=== PATIENT | male | born 1940 | race Caucasian/White ===

== ENCOUNTER → 2018-03-17 | Outpatient (CLI) | payer OTHER, MEDICARE ==
[~2018-03-17] VITALS: Ht 182.9 cm; Wt 113.0 kg
[~2018-03-17] MED LIST: ASPIR 8181 MG PO; CHLORPROMAZINE25 M1 PO; CIPRO250 M1 PO; EPITOL200 MG PO; FLOMAX PO; FOLIC ACID1 MG PO; METHOTREXATE 22.5 M1 PO; NAPROSYN375 MG PO; NEURONTIN 300300 M1 PO; PERCOCET 5-3251 EACH PO; PRAVASTATIN SOD10 MG PO; PROTONIX40 MG PO; REGLAN 10 MG TA10 MG PO; RESTORIL15 MG PO; TEGRETOL XR100 MG PO; VITAMIN D3400 UNI2 PO; ZPAK PO
--- NOTE | ~2018-03-17 | EKG ---
[place] [address] [facility] [place] [address] ELECTROCARDIOGRAM REPORT Name: LONDONCATHLEEN BOLIVAR Room #: REG CLI Destini#: [id number] Admission: 03/17/18 Attend Phys: Dante Tate MD Discharge: Date of : 36 Report #: [id number] THIS REPORT FOR: //name// [facility] Test Date: 2018-03-17 Test Time: 07:18:23 Pat Name: CATHLEEN CALLAHAN Department: Room: Gender: M Senior Analysis Specialist: COLLETTE : 1940 Requested By: Becky Hooks Order Number: [id number] MD: Dwayne Hammond Measurements Intervals [place] Rate: 90 P: 0 CT: QRS: 126 QRSD: 144 T: -59 QT: 439 QTc: 538 Interpretive Statements Ventricular-paced complexes No further analysis attempted due to paced rhythm Compared to ECG 10/06/2014 20:08:51 Ventricular pacing is now present Electronically Signed On 03-17-2018 8:20:46 CDT by Dwayne Hammond [email or web address] <ELECTRONICALLY SIGNED> By: Dwayne Hammond MD, [facility] 03/17/18819 7 7 Dwayne Hammond MD, [facility] /EPI
--- NOTE | ~2018-03-17 | P ---
[facility] [place] [address] [place] [address] PROCEDURE REPORT Name: CATHLEEN CALLAHAN Room #: REG [facility].#: [id number] Admission: 03/17/18 Attend Phys: Dante Tate MD Discharge: Date of : 36 Report #: [id number] THIS REPORT FOR: //name// CC: Dante Tate BRIEF HISTORY: The patient is a 77-year-old male with a history of colon cancer for high-risk screening colonoscopy. PREOPERATIVE DIAGNOSIS: High-risk screening colonoscopy. POSTOPERATIVE DIAGNOSES: 1. Multiple small shallow ulcers, distal ileum, at the level of the anastomosis. 2. Moderate internal hemorrhoids. MEDICATIONS: Deep sedation with propofol per anesthesia. SPECIMEN: Biopsies of ulcerations at ileocolonic anastomosis. ESTIMATED BLOOD LOSS: 3 mL. PROCEDURE: Flexible sigmoidoscopy to distal ileum with biopsy. FINDINGS: Prior to propofol sedation, procedure of colonoscopy discussed with the patient as well as potential risks and its complications. He indicates he understands and desires to proceed. DESCRIPTION OF PROCEDURE: With the patient in left lateral decubitus position, digital examination was completed, which revealed no abnormalities. Subsequently, the Olympus video colonoscope was introduced in the rectum and advanced under direct vision. The scope was advanced to the level about 40-50 cm, at which point, the surgical anastomosis was identified. He has had a previous subtotal colectomy for colon cancer. The anastomosis was widely patent. The colonic stump was entered and noted to be unremarkable. The ileus stump was entered and noted to be unremarkable as well. At the level of the anastomosis, there were superficial ulcerations. The scope was advanced into the small bowel limb in the distal several centimeters, there were multiple small ulcers. Multiple biopsies were obtained. At that point, the scope was slowly withdrawn and careful circumferential views were obtained. Multiple small ulcers were seen, and biopsies were obtained. No strictures or masses were seen. The scope was further withdrawn and the colonic mucosa was unremarkable. No mucosal abnormalities were seen. No polyps were seen. The scope was withdrawn. The patient tolerated the procedure well. Upon retroflexion, hemorrhoids were seen. Scope was withdrawn. The patient [address] [address] PROCEDURE REPORT Name: CATHLEEN CALLAHAN [id number] Admission: 03/17/18 Attend Phys: Dante Tate MD Discharge: Date of : 36 Report #: [id number] tolerated the procedure well. CONDITION OF THE PATIENT UPON DISCHARGE: Following the procedure, the patient is drowsy, aroused and will be discharged home when fully ambulatory. INSTRUCTIONS TO THE PATIENT AND FAMILY AT THE TIME OF DISCHARGE: He has superficial ulcerations at the level of the ileocolonic anastomosis. This may be more mechanical rather than representing inflammatory disease. As noted, he does take methotrexate for his myasthenia gravis. We will follow up on biopsies obtained today. The patient did recently complain of explosive stools. He is certainly at risk for diarrhea with his subtotal colectomy. Copious amounts of bile were seen and bilious diarrhea is a potential factor. We will assess for the patient. Use of Imodium would be reasonable. Another option would be use of cholestyramine. At this point in time, consider followup colonoscopy in about 3 years. I would base that recommendation on the patient's overall health status, 3 years hence. He will return to care of Dr. Dante Caldera and return to see me as needed. <ELECTRONICALLY SIGNED> By: Dante Tate MD 03/23/18 [id number] Dante Tate MD /nt
--- NOTE | ~2018-03-17 | PATH ---
[facility] [address] [address] PATHOLOGY RPT PROCEDURE Name: AMRIT CALLAHAN Room #: REG CLI M.R.#: [id number] Admission: 03/17/18 Date of : 36 Discharge: Report #: [id number] Path Case #: [id number] [facility] Accession Number: [id number] . 01 Material submitted: . BX OF DISTAL ILEUM ULCERS . 01 Clinical history: . Pre-OP DX: Hx of colon cancer Post-OP DX: Ileo ulcers, hemorrhoids . 02 Diagnosis: Small bowel mucosa, distal ileum ulcers, endoscopic biopsy: - Marked active inflammation associated with surface ulceration. Please see comment. - Negative for dysplasia or malignancy. P/03/20/2018 . 02 Comment: Examination shows active cryptitis, surface ulceration, as well as a markedly expanded lamina propria. Viral inclusions, granulomata or parasitic organisms are not identified. Given the description, the differential diagnosis includes Crohn's disease, proximal involvement by ulcerative colitis, active infections-type of ileitis as well as medication induced changes. Increase in intraepithelial lymphocytes is not identified. There is no dysplasia or malignancy present. Please correlate clinically. (IUV:pit 03/20/2018) . 02 Electronically signed: . Candice Marie MD, Pathologist NPI- [id number] . 01 Gross description: . Received in formalin labeled "Callahan Amrit, BX of distal ileum ulcers," are 5 segments of kelly soft tissue measuring 1.5 x 0.6 x 0.2 cm in aggregate dimensions and ranging from 0.4 to 0.6 cm in maximum dimension. The specimen is submitted entirely in cassette A1. (TSD; 03/17/2018) TOB/TOB . 02 Pathologist provided ICD-10: K63.3, K52.9 . 02 CPT . 103637 Performed at: [address] [address] PATHOLOGY RPT PROCEDURE Name: AMRIT CALLAHAN KATT Room #: REG CLI [facility].#: [id number] Admission: 03/17/18 Date of : 36 Discharge: Report #: [id number] Path Case #: [id number] [facility] [address] [facility] [address], [place] [id number] MD Jacky Bautista MD Phone: [phone] Performed at: [address] [place] [id number] MD Candice Marie MD Phone: [phone]
== END | disposition home or self-care (01) ==
LOC: GI 06:34
DX: Z12.11 Encounter for screening for malignant neoplasm of colon (principal); Z85.038 Personal history of other malignant neoplasm of large intestine; K63.3 Ulcer of intestine; K64.8 Other hemorrhoids; G47.33 Obstructive sleep apnea (adult) (pediatric); E78.5 Hyperlipidemia, unspecified; Z95.0 Presence of cardiac pacemaker; N18.3 Chronic kidney disease, stage 3 (moderate); Z98.41 Cataract extraction status, right eye; Z98.42 Cataract extraction status, left eye; Z98.0 Intestinal bypass and anastomosis status; Z98.890 Other specified postprocedural states; Z87.442 Personal history of urinary calculi; Z79.899 Other long term (current) drug therapy; Z79.82 Long term (current) use of aspirin; Z88.8 Allergy status to other drugs, medicaments and biological substances
CPT/HCPCS: 62110; 62900

== ENCOUNTER → 2020-03-25 | Outpatient (CLI) | payer OTHER, MEDICARE | LOC: SJCVCIMAG 12:35 | PROVIDERS: ATTEND Internal Medicine | DX: I08.8 Other rheumatic multiple valve diseases (principal); E78.5 Hyperlipidemia, unspecified; G70.00 Myasthenia gravis without (acute) exacerbation; Z95.0 Presence of cardiac pacemaker; Z79.899 Other long term (current) drug therapy ==